=== PATIENT | male | born 1980 | race Two or more races ===

== ENCOUNTER → 2019-06-13 | Outpatient (CLI) | payer OTHER ==
[2019-06-13 08:56] LABS: HEMATOCRIT 29.1 % (41-53); HEMOGLOBIN 9.7 g/dL (13.5-17.5)
[2019-06-13 09:15] LABS: CALCIUM, TOTAL 7.1 mg/dL (8.8-10.5); CREATININE 10.4 mg/dL (0.60-1.30)
== END | disposition home or self-care (01) ==
LOC: LABPV 08:22
PROVIDERS: ATTEND Internal Medicine Nephrology
DX: N18.5 Chronic kidney disease, stage 5 (principal); D63.1 Anemia in chronic kidney disease
CPT/HCPCS: 85014; 85018